=== PATIENT | female | born 1995 | race Caucasian/White ===

== ENCOUNTER 2017-05-05 17:30 | Emergency (ER) | payer BC ==
--- NOTE | 2017-05-05 19:23 | RAD ---
INDICATION: Left fifth finger crush injury. TECHNIQUE: 3 views of the left fifth finger were obtained. FINDINGS: There is soft tissue swelling around the distal phalanx and disruption of the nail bed. There is an oblique fracture extending through the tuft of the distal phalanx. The fracture fragments are slightly distracted. Joint spaces appear maintained. IMPRESSION: SOFT TISSUE INJURY AND OBLIQUE SLIGHTLY DISPLACED FRACTURE OF THE TUFT OF THE DISTAL PHALANX.
[2017-05-05] MEDS ORDERED: Lidocaine 1%* 5 ML VIAL ONE (21:25)
--- NOTE | 2017-05-05 22:08 | ED ---
Upper Extremity Pain - HPI Summary HPI Summary: 22F presents with injury to left pinky finger. She dropped weight on finger. She states the area avulse her nail so she went to [facility] and they tried to glue it down. She states the glue is not sticking. She denies any numbness or tingling. She has a tuft fracture and was prescribed keflex for it. She is right handed. - History of Current Complaint Chief Complaint: EDExtremityUpper Stated Complaint: LT FINGER INJURY Time Seen by Provider: 05/05/17 18:51 Hx Last Menstrual Period: 1 week ago - Allergies/Home Medications Allergies/Adverse Reactions: Allergies Allergy/AdvReac Type Severity Reaction Status Date / Time No Known Allergies Allergy Verified 06/29/16 11:59 PMH/Surg Hx/FS Hx/Imm Hx Endocrine/Hematology History: Denies: Hx Anticoagulant Therapy Cardiovascular History: Denies: Hx Hypertension Infectious Disease History: No Infectious Disease History: Denies: Traveled Outside the [place] in Last 30 Days - Family History Known Family History: Positive: Cardiac Disease - Social History Alcohol Use: Weekly Substance Use Type: Reports: None Smoking Status (MU): Never Smoked Tobacco Review of Systems Negative: Fever Negative: Chest Pain Negative: Shortness Of Breath Positive: Myalgia - left pinky injury All Other Systems Reviewed And Are Negative: Yes Physical Exam Triage Information Reviewed: Yes Vital Signs On Initial Exam: Initial Vitals Temp Pulse Resp BP Pulse Ox 98 F 97 17 117/73 100 05/05/17 17:30 05/05/17 17:30 05/05/17 17:30 05/05/17 17:30 05/05/17 17:30 Vital Signs Reviewed: Yes Appearance: Positive: Well-Appearing Skin: Positive: Warm, Dry Head/Face: Positive: Normal Head/Face Inspection Eyes: Positive: Normal, Conjunctiva Clear Respiratory/Lung Sounds: Positive: Clear to Auscultation, Breath Sounds Present Cardiovascular: Positive: Normal, RRR Musculoskeletal: Positive: Strength/ROM Intact - left pinky finger, Other - nail edge covered in glue and nail bed on radial aspect of left pinky finger, nail from nail bed on that side, good pulses - Mariely Coma Scale Coma Scale Total: 15 Procedures - Laceration/Wound Repair 1 Location: Other - left pinky Description: Irregular Anesthesia: Digital, 1.0% Length, Depth and Shape: 1cm by 1/4cm on side of nail, nailbed Betadine Prep?: Yes Irrigated w/ Saline (ccs): 1,000 Closure: Single Layer Suture Type: Prolene - 4-0, Chromic - 6-0 Number of Sutures: 4 - 2 prolene, 2 absorable on nail bed Layer Closure?: No Sterile Dressing Applied?: Yes - telfa, coband, finger splint Diagnostics - Vital Signs Vital Signs Temp Pulse Resp BP Pulse Ox 05/05/17 21:07 98.3 F 65 16 118/68 100 05/05/17 17:30 98 F 97 17 117/73 100 - Laboratory Lab Statement: Any lab studies that have been ordered have been reviewed, and results considered in the medical decision making process. Course/Dx - Course Course Of Treatment: 22F presents with injury to left pinky finger. She dropped weight on finger. She states the area avulse her nail so she went to [facility] and they tried to glue it down. She states the glue is not sticking. She denies any numbness or tingling. She has a tuft fracture and was prescribed keflex for it. on exam glue is falling off area and nail bed on one side is not in place. numbed area and placed nail bed back in placed. secrued nail bed with absorbable. rettached lateral aspect of nail through glue as could not remove it to secure nail to side of finger. told patient that will still potential loose nail. patient understands and agrees with plan. - Diagnoses Differential Diagnosis/HQI/PQRI: Positive: Fracture (Closed), Other - avulsion, lac Provider Diagnoses: left nail avulsion, Closed fracture of tuft of distal phalanx of finger Discharge - Discharge Plan Condition: Good Disposition: HOME Patient Education Materials: Care For Your Stitches (ED), Finger Fracture (ED) Referrals: No Primary Care Phys,NOPCP [Primary Care Provider] - Deshawn Alvarenga MD [Medical Doctor] - Additional Instructions: You will probably lose your finger nail. The finger nail is tacked down as a conrad for the nail that will grow eventually back in its place. It can take up to 6 months for this to occur. Keep pressure dressing on area till see [facility] in two days A referral for ortho is provided if want to come follow up with them with any issues Take ibuprofen and tyenlol every 6 hours as needed for pain Elevate finger Avoid soaking area Take antibiotics prescribed by jefferson Sutures need to be removed in 10-14 days Return to ED if develop any signs of infection or any new or worsening symptoms
[2017-05-05 22:19] VITALS: BP 120/68
== END 2017-05-05 22:18 | disposition home or self-care (01) ==
LOC: ED 17:30
DX: S62.637A Displaced fracture of distal phalanx of left little finger, initial encounter for closed fracture (principal); S61.307A Unspecified open wound of left little finger with damage to nail, initial encounter; W22.8XXA Striking against or struck by other objects, initial encounter; Y92.9 Unspecified place or not applicable
CPT/HCPCS: 12001; 73140; 99282